=== PATIENT | male | born 1980 | race Hispanic/Latino ===

== ENCOUNTER 2017-08-24 22:04 | Emergency (ER) | payer SELFPAY ==
--- NOTE | 2017-08-24 22:23 | RAD ---
CHEST ONE VIEW: 08/24/17 HISTORY: 37-year-old male with history of chest pain. Monitor leads overlie the chest. heart size is normal. The lungs are clear. IMPRESSION: No acute intrathoracic disease. POS: [facility]
[2017-08-24 22:39] LABS: #Eosinphils 0.3 thou/uL (0.0-0.7); #Lymphocytes 1.3 thou/uL (1.20-3.40); #Monocytes 0.7 thou/uL (0.11-0.59); #Neutrophils 2.6 thou/uL (1.40-6.50); %Eosinophils 5.5 % (0.0-10.0); %Lymphocytes 27.2 % (21.0-51.0); %Monocytes 14.3 % (0.0-10.0); %Neutrophils 52.1 % (42.0-75.0); Hemoglobin 14.4 g/dL (14.0-18.0); Mean Corpuscular HGB CONC 34.7 g/dL (32.0-36.0); Mean Corpuscular Hemoglobin 31.5 pg (27.0-31.0); Mean Corpuscular Volume 90.8 fl (80.0-94.0); Mean Platelet Volume 7.1 fL (7.4-10.4); Platelet Count 169 thou/uL (130-400); Red Blood Cell (RBC) Count 4.59 mill/uL (4.70-6.10); White Blood Cell (WBC) Count 4.9 thou/uL (4.8-10.8)
[2017-08-24 23:02] LABS: ALT (SGPT) 27 U/L (8-55); AST (SGOT) 35 U/L (5-34); Albumin 4.1 g/dL (3.5-5.0); Alkaline Phosphatase 90 U/L (40-150); Anion Gap 8 mmol/L (10-20); BUN (Urea Nitrogen) 11 mg/dL (8.9-20.6); Bilirubin, Total 0.4 mg/dL (0.2-1.2); Calc. Creatinine Clearance 0 mL/min (70-130); Calcium 8.9 mg/dL (7.8-10.44); Carbon Dioxide 28 mmol/L (22-29); Chloride 105 mmol/L (98-107); Estimated GFR-MDRD 71; Globulin 2.8 g/dL (2.4-3.5); Glucose 103 mg/dL (70-105); Lipase 186 U/L (8-78); Potassium 3.3 mmol/L (3.5-5.1); Protein, Total 6.9 g/dL (6.0-8.3); Sodium 138 mmol/L (136-145)
[2017-08-24 23:04] LABS: CKMB 1.3 ng/mL (0-6.6); Troponin I Less than 0.010 ng/mL (< 0.028)
== END 2017-08-24 23:30 | disposition home or self-care (01) ==
LOC: ERS 22:04
DX: R10.13 Epigastric pain (principal)
CPT/HCPCS: 36415; 71045; 80053; 82553; 83690; 84484; 85025; 93005